=== PATIENT | female | born 1945 | race Caucasian/White ===

== ENCOUNTER → 2020-09-28 13:34 | Outpatient (CLI) | payer MEDICARE, SELFPAY ==
--- NOTE | 2020-09-28 | DI.CT.S_ITS ---
PROCEDURE: CT CHEST WO CON INDICATIONS: Chronic obstructive pulmonary disease, unspecified TECHNIQUE: Noncontrast 5 mm thick sections acquired from the pulmonary apices to the posterior costophrenic angles. 1 mm lung window, 5 mm thick coronal and sagittal and 7 mm axial MIP reformats were then acquired. For radiation dose reduction, the following was used: automated exposure control, adjustment of mA and/or kV according to patient size. COMPARISON: Outside Facility, , CT THORAX W/O CONTRAST, 05/06/2020, 12:09. FINDINGS: Image quality: Excellent. Lungs and pleura: No acute air space opacities. The prior pattern seen 05/06/20 has improved, with reduction of a generalized alveolitis pattern and also a reduction in the degree of interstitial prominence. No new abnormality has developed. No evidence of bronchiectasis or bronchitis is found. No pleural effusions or pneumothorax. Central and peripheral airways are patent and normal in caliber. Mediastinum: Heart size is normal. No pericardial effusion. No mediastinal adenopathy by size criteria. Thoracic aorta and central pulmonary arteries are normal in size. Esophagus is normal in caliber. No hiatal hernia. Bones and chest wall: No suspicious bony lesions. No vertebral body compression fractures. No axillary or supraclavicular adenopathy by size criteria. Thyroid gland is not well seen by this noncontrast technique. . Abdomen: Visualized upper abdominal solid organs and bowel loops appear normal in the absence of contrast. IMPRESSION: Significant interval improvement in the interstitial pneumonitis pattern and alveolitis pattern present 05/06/20. Mild patchy fibrotic change, in a pattern more likely to represent sequela of prior inflammatory events focally rather than a manifestation of UIP. Dictated by: Flakito Worrell M.D. on 09/29/2020 at 10:14 Approved by: Flakito Worrell M.D. on 09/29/2020 at 10:17
== END ==
PROVIDERS: Family Provider Family Medicine; PCP Family Medicine; Referring Provider Family Medicine; Visit Provider Family Medicine
DX: J44.9 Chronic obstructive pulmonary disease, unspecified (principal)
CPT/HCPCS: 71250

== ENCOUNTER 2022-06-16 11:42 | Day surgery (SDC) | payer OTHER, SELFPAY ==
[2022-06-16 12:09] VITALS: BP 137/89; PULSE 101; RESP 24; TEMP 36.6; O2SAT 95; BMI 52.3
[2022-06-16] MEDS: LACTATED RINGERS 1,000 ML 100 ML IV (12:22)
--- NOTE | 2022-06-16 13:10 | PM.PREOP ---
Pre-operative Note Interval Note History & Physical reviewed/Exam performed by Physician: Yes Changes to H&P: No H&P completed within 30 days and has changed as indicated here:: Presents today for screening colonoscopy I discussed the risks benefits and alternatives including but not limited to perforation of the colon and an incomplete exam she fully understands these risks and would like to proceed. Reiterated again today
[2022-06-16 14:17] VITALS: BP 111/88; PULSE 77; RESP 20; TEMP 36.9; O2SAT 99
[2022-06-16 14:22] VITALS: BP 162/91; PULSE 76; RESP 19; O2SAT 99
[2022-06-16 14:27] VITALS: BP 160/75; PULSE 77; RESP 22; O2SAT 100
[2022-06-16 14:32] VITALS: BP 160/80; PULSE 75; RESP 20; O2SAT 98
[2022-06-16 14:46] VITALS: BP 158/78; PULSE 77; RESP 20; TEMP 36.6; O2SAT 97
--- NOTE | 2022-06-16 18:25 | PM.OP.COLON ---
Operative Date/Time/Diagnoses Date of procedure: 06/16/22 Pre-op diagnosis: Colon cancer screening, history of polyps Procedure & Clinicians Study performed: Colonoscopy Same procedure as scheduled: Yes Surgeon: Darling Valdez Procedure Notes Procedure in detail: Patient was taken to the endoscopy suite and placed in a left lateral decubitus position. A time-out was performed. The help of anesthesiologist conscious sedation was induced and maintained throughout the case. A digital rectal exam was performed. The perianal skin was irritated and some external hemorrhoids were appreciated. Of note in addition there was a sacral decubitus ulcer stage II which was very reddened with some small amount of skin breakdown in the middle. The digital exam revealed no masses or strictures. Colonoscope was introduced into the anal canal and advanced through to the cecum. The prep was good it was a Tillson bowel prep score of 2. The withdrawal time was 14 minutes. There were several diverticula that were large especially in the sigmoid colon. Some photographs were obtained. The appendiceal orifice was photographed. The scope was retroflexed and the internal hemorrhoid piles appeared unremarkable. Patient tolerated the procedure well and went in good condition to the postoperative care unit. With no family history of colon cancer for the purpose of screening her follow-up can be in 10 years. She should have a colonoscopy sooner if she develops any concerning symptoms. Findings: divertiulosis and other findings (Stage II sacral decubitus ulcer present upon admission) Specimen(s): none sent Post-procedure Recommendations: Colonoscopy in 10 years Plan for aftercare: Regarding colon cancer screening: I do not adhere to a certain age generally at which screening is no longer recommended. I discussed this with Ms. Horton. A my feeling is that if you feel well enough that if you were diagnosed with colon cancer you would like to proceed with a surgery to remove it and possibly chemotherapy to treat it then you are well enough to tolerate a screening colonoscopy and ought to have one. This would be a 10 year follow-up and that discussion can be had at that time.
== END 2022-06-16 15:03 | disposition home or self-care (01) ==
PROVIDERS: Family Provider Family Medicine; PCP Family Medicine; Referring Provider Surgery; Visit Provider Surgery
PROC: 0DJD8ZZ Inspection of Lower Intestinal Tract, Via Natural or Artificial Opening Endoscopic (ICD-10-PCS; CPT 45378; principal; 2022-06-16 12:45)
DX: Z12.11 Encounter for screening for malignant neoplasm of colon (principal); Z86.010 Personal history of colon polyps; K57.30 Diverticulosis of large intestine without perforation or abscess without bleeding; L89.152 Pressure ulcer of sacral region, stage 2
CPT/HCPCS: 45378; 82962; J2250

== ENCOUNTER → 2022-09-14 09:40 | Outpatient (CLI) | payer OTHER, SELFPAY ==
--- NOTE | 2022-09-14 | DI.RAD.S_ITS ---
PROCEDURE: XR KNEE LT 3V INDICATIONS: Pain in left knee TECHNIQUE: 3 views of the knee were acquired. COMPARISON: None. FINDINGS: Bones: No fractures or dislocations. [id number] tricompartmental osteoarthritis is seen with joint space narrowing, subchondral sclerosis and marginal osteophyte formation. No suspicious bony lesions. Soft tissues: No joint effusion. Chondrocalcinosis in medial and lateral femoral tibial compartments are seen. Chondrocalcinosis is also seen in patellofemoral compartment. IMPRESSION: Hpum-os-[id number] tricompartmental osteoarthritis and chondrocalcinosis as described above. No fracture or dislocation. No significant joint effusion. Dictated by: Mike Gutierrez M.D. on 09/14/2022 at 12:36 Approved by: Mike Gutierrez M.D. on 09/14/2022 at 12:37
== END ==
PROVIDERS: Family Provider Family Medicine; PCP Family Medicine; Referring Provider Family Medicine; Visit Provider Family Medicine
DX: M17.12 Unilateral primary osteoarthritis, left knee (principal); M11.262 Other chondrocalcinosis, left knee; M25.562 Pain in left knee
CPT/HCPCS: 73562

== ENCOUNTER → 2023-03-16 13:28 | Outpatient (CLI) | payer OTHER, SELFPAY ==
--- NOTE | 2023-03-16 | DI.NM.S_ITS ---
PROCEDURE: NM PARATHYROID SPECT RADIOPHARMACEUTICAL: 26.5 mCi Tc-99m sestamibi IV. INDICATIONS: ELEVATED PARATHYROID HORMONE TECHNIQUE: After intravenous administration of Tc-99m sestamibi, anterior planar images of the neck and mediastinum were obtained at approximately 10 minutes and 2-3 hours. SPECT images were acquired after the 10 minute planar images. COMPARISON: Outside Facility, RG, US THYROID, 07/01/2018, 16:14. [facility], CT, CT CHEST WO CON, 09/28/2020, 13:42. FINDINGS: On the early images, the thyroid gland is bilobed and has normal size and morphology. There is no focal increased activity in the thyroid bed. The delayed images show trace persistent activity in the expected position of the thyroid. The SPECT images demonstrate no abnormal activity in the neck. IMPRESSION: Trace persistent activity projecting over the thyroid on delayed images, possibly representing hyperplasia or persistent thyroid activity. No asymmetric nodular uptake to suggest a focal adenoma. Consider more recent thyroid ultrasound for additional evaluation if indicated. Approved by: Jonathan Preston M.D. on 03/16/2023 at 20:21
== END ==
LOC: NUCM 13:29
PROVIDERS: Family Provider Family Medicine; PCP Family Medicine; Referring Provider Family Medicine; Visit Provider Family Medicine
DX: R79.89 Other specified abnormal findings of blood chemistry (principal)
CPT/HCPCS: 78071; A9500

== ENCOUNTER → 2023-03-26 09:00 | Outpatient (CLI) | payer OTHER, SELFPAY ==
--- NOTE | 2023-03-26 | DI.US.S_ITS ---
PROCEDURE: US THYROID INDICATIONS: HYPERCALCEMIA TECHNIQUE: Real-time scanning was performed of the thyroid gland, with image documentation. COMPARISON: None available at the time of dictation. FINDINGS: Right: Thyroid lobe measures 4.7 x 1.4 x 1.9 cm, and is homogeneous in echotexture. Left: Thyroid lobe measures 6.1 x 1.7 x 2.2 cm, and is homogenous in echotexture. Isthmus: 0.7 cm thick. Nodule number: 1 Location: Left lower lobe Size: 2.6 x 2.2 by 2.2 cm. Composition: Solid Echogenicity: Hypoechoic Shape: wider than tall. Margins: smooth Echogenic foci: Non Total points: 4 ACR TI-RADS category: 4, previously biopsied, benign results It 2 x 2 mm calcifications also seen in the superior left thyroid, too small for follow-up. IMPRESSION: 2.6 cm left inferior thyroid nodule appears unchanged since 5 years ago and prior FNA was benign as per patient in 2019; therefore no follow-up of this lesion is required. ACR TI-RADS definitions and recommendations: TI-RADS 1 (benign): 0 points. FNA not needed. TI-RADS 2 (not suspicious): 2 points. FNA not needed. TI-RADS 3 (mildly suspicious): 3 points. * FNA if 2.5 cm or larger, follow up if 1.5 cm or larger (at 1, 3, and 5 years). TI-RADS 4 (moderately suspicious): 4-6 points. * FNA if 1.5 cm or larger, follow up if 1 cm or larger (at 1, 2, 3, and 5 years). TI-RADS 5 (highly suspicious): 7 points or more. * FNA if 1 cm or larger, follow up if 0.5 cm or larger (every year for 5 years). Dictated by: Arun Linder M.D. on 03/26/2023 at 13:41 Approved by: Arun Linder M.D. on 03/27/2023 at 10:04
== END ==
LOC: US 09:02
PROVIDERS: Family Provider Family Medicine; PCP Family Medicine; Referring Provider Family Medicine; Visit Provider Family Medicine
DX: E04.1 Nontoxic single thyroid nodule (principal); E83.52 Hypercalcemia; R79.89 Other specified abnormal findings of blood chemistry
CPT/HCPCS: 76536

== ENCOUNTER → 2023-04-10 10:46 | Outpatient (CLI) | payer OTHER, SELFPAY ==
--- NOTE | 2023-04-10 10:48 | DI.RAD.S_ITS ---
Bone Density Report Name: AMRIK BEAL Age: 77 Sex: Female Ethnicity: White Date of : 1945 Indication: postmenopausal; screening for osteoporosis; Referring Provider: JAY JAY GERONIMO Study: Bone densitometry was performed. Exam Date: April 10, 2023 Accession number: [id number] Bone Density: Region BMD T-score Z-score Classification AP Spine(L1-L4) 1.082 0.3 2.9 Normal Femoral Neck (Left) 0.748 -0.9 1.3 Normal Total Hip (Left) 0.909 -0.3 1.6 Normal Femoral Neck (Right) 0.666 -1.6 0.5 Osteopenia Total Hip (Right) 0.946 0.0 1.9 Normal Total Hip Mean 0.927 -0.2 1.8 Normal World Health Organization criteria for BMD impression classify patients as: Normal (T-score at or above -1.0), Osteopenia (T-score between -1.0 and -2.5), or Osteoporosis (T-score at or below -2.5). 10-year Fracture Risk(1): Major Osteoporotic Fracture 10% Hip Fracture 2.1% Reported Risk Factors: [place] (), Neck BMD=0.666, BMI=49.2 (1) FRAX(R) Version 3.08. Fracture probability calculated for an untreated patient. Fracture probability may be lower if the patient has received treatment. Previous Exams: -- Region Exam Age BMD T-score BMD Change BMD Change Date g/cm2 vs Baseline vs Previous -- AP Spine (L1-L4) 04/10/2023 77 1.082 0.3 0.085 (8.6%)# 0.085 (8.6%)# 11/15/2010 65 0.996 -0.5 Total Hip(Left) 04/10/2023 77 0.909 -0.3 -0.186 (-17.0%)# -0.186 (-17.0%)# 11/15/2010 65 1.095 1.3 Total Hip(Right) 04/10/2023 77 0.946 0.0 -0.093 (-8.9%)# -0.093 (-8.9%)# 11/15/2010 65 1.038 0.8 -- *Denotes significance at 95% confidence level, LSC for AP Spine = 0.022 g/cm2, LSC for Total Hip = 0.027 g/cm2 # Denotes dissimilar scan types or analysis methods Impression: The patient has low bone mass, based on the Right Femoral Neck T-score. The patient has an estimated ten-year risk of hip fracture of 2.1% and an estimated ten-year risk of major fracture of 10%, based on the WHO FRAX algorithm. No significant bone loss was observed. Discussion: BONE DENSITY IS LOW AT ONE OR MORE SKELETAL SITES. This patient's lowest T-score is low at one or more skeletal sites. It meets the World Health Organization's (WHO) criteria for low bone mass (T-score between -1.0 and -2.5). The patient's 10-year risk of fracture as calculated by FRAX is less than the threshold where pharmacological therapy is recommended by the National Osteoporosis Foundation (NOF). However, all treatment decisions require clinical judgment and consideration of individual patient factors, including patient preferences, comorbidities, previous drug use, risk factors not captured in the FRAX model (e.g., frailty, falls, vitamin D deficiency, increased bone turnover, interval significant decline in bone density) and possible under or overestimation of fracture risk by FRAX. The patient should follow a healthful lifestyle (good nutrition with adequate calcium and vitamin D, and appropriate weight-bearing exercise). Follow-Up: Consider repeating this study in 2 to 3 years to reassess this patient's status, or sooner if there is some new clinical indication. Reported by: KEVIN BRO MD on 04/10/2023 11:44:00 AM.
--- NOTE | 2023-04-10 11:06 | DI.CT.S_ITS ---
PROCEDURE: CT CHEST WO CON INDICATIONS: Other specified disorders of bone density and stru TECHNIQUE: Noncontrast 5 mm thick sections acquired from the pulmonary apices to the posterior costophrenic angles. 1 mm lung window, 5 mm thick coronal and sagittal and 7 mm axial MIP reformats were then acquired. For radiation dose reduction, the following was used: automated exposure control, adjustment of mA and/or kV according to patient size. COMPARISON: Outside Facility, RG, CT THORAX W/O CONTRAST, 12/24/2018, 9:42. [facility], CT, CT CHEST WO CON, 09/28/2020, 13:42. FINDINGS: Image quality: Diagnostic. Lower Neck: No enlarged lymph nodes. Thyroid: There is an inferior left low-density thyroid nodule. The right thyroid lobe is unremarkable. Axillae: No enlarged lymph nodes. Chest Wall: Unremarkable. Bones: Unremarkable. Lungs and Pleura: No pneumothorax or pleural effusions. There is severe centrilobular emphysema and paraseptal emphysema with an apical predominance. Peripheral interlobular septal thickening is present throughout the lungs suggesting fibrotic change. There is early honeycombing fibrosis at the right lung base. A 7 mm pleural based right middle lobe pulmonary nodule is unchanged from the study dated December 24, 2018 (series 3/image 143). Heart: Heart size is normal. No pericardial effusion. Thoracic Vessels: The aorta and pulmonary arteries demonstrate normal size. Scattered atheromatous calcifications are present within the aortic arch. Mediastinum and Leyda: No enlarged lymph nodes. Esophagus: No wall thickening. No hiatal hernia. Upper Abdomen: Visualized upper abdomen solid organs and bowel loops appear normal. IMPRESSION: 1. No suspicious pulmonary nodules or acute airspace opacities which warrant follow-up. 2. Emphysematous change and pulmonary fibrosis. Dictated by: Daria Camarillo M.D. on 04/10/2023 at 15:50 Approved by: Daria Camarillo M.D. on 04/10/2023 at 16:02
== END ==
PROVIDERS: Family Provider Family Medicine; PCP Family Medicine; Referring Provider Family Medicine; Visit Provider Family Medicine
DX: J43.2 Centrilobular emphysema (principal); R91.1 Solitary pulmonary nodule; J84.10 Pulmonary fibrosis, unspecified; M85.89 Other specified disorders of bone density and structure, multiple sites
CPT/HCPCS: 71250; 77080

== ENCOUNTER 2023-06-22 22:03 | Emergency (ER) | payer OTHER, SELFPAY ==
[2023-06-22 22:06] VITALS: BP 132/64; PULSE 95; RESP 24; TEMP 36.5; O2SAT 96; BMI 52.3
--- NOTE | 2023-06-22 23:17 | PC.NURSE ---
Patient has mottled skin to middle and upper back. She reports she uses a heating pad all throughout the day and often sleeps on it. 1 attempt at IV failed by Jess Jimenez RN, 2 attempts at IV by this EDRN in Left Upper arm using ultrasound failed at this time. Lab called to come draw blood. Patient unable to provide urine specimen in bathroom. Upon exiting bathroom she reports that she wants to go home. This EDRn encouraged her to stay and explained to her the risks of leaving prior to being seen by a provider. Patient sitll wants to go, she signed [facility] paperwork at this time.
--- NOTE | 2023-06-22 23:22 | PC.NURSE ---
Patient reports low back pain with degenerative disc disease and kidney disease. She reports pain is achy in nature.
--- NOTE | 2023-06-23 06:19 | ED.BACK ---
HPI - Back Pain/Injury General Chief Complaint: Back Pain/Injury Stated Complaint: kidney pain/modeling on back Source: patient and family History of Present Illness HPI Narrative: (patient left without being seen, was in the waiting room apparently left from the waiting room) Related Data Home Medications Medication Instructions Recorded Confirmed MULTIVITAMIN (Multivitamin 0 PO * UK DOSE/FREQUENCY ##0 02/06/07 05/19/22 -) aspirin 81 mg tablet,delayed 81 mg PO QDAY ##0 06/11/16 06/16/22 release acetaminophen 500 mg tablet 1,000 mg PO ONCE 05/19/22 05/19/22 atorvastatin 20 mg tablet 20 mg PO DAILY 05/19/22 06/16/22 gabapentin 600 mg tablet 600 mg PO DAILY 05/19/22 06/16/22 lisinopril 20 1 tab PO DAILY 05/19/22 06/16/22 mg-hydrochlorothiazide 25 mg tablet loratadine 10 mg tablet 10 mg PO DAILY 05/19/22 06/16/22 nystatin 100,000 unit/gram topical 1 applic topical QID 05/19/22 05/19/22 cream sertraline 50 mg tablet 50 mg PO DAILY 05/19/22 06/16/22 tramadol 50 mg tablet 50 mg PO Q6H PRN Pain (Scale Score 05/19/22 06/16/22 1-3) Allergies Allergy/AdvReac Type Severity Reaction Status Date / Time Sulfa (Sulfonamide Allergy Verified 05/19/22 10:49 Antibiotics) Patient History Medical History CKD (chronic kidney disease), stage III COPD (chronic obstructive pulmonary disease) Degenerative joint disease Depression Hyperlipemia Hypertension Lumbar radiculopathy RLS (restless legs syndrome) Sleep apnea Type 2 diabetes mellitus Family History Mother Cancer Hypertension Diabetes mellitus Father Cancer Diabetes mellitus Hypertension Social History household members: family Smoking Status: Never smoker alcohol intake: current Smoking Status: Never smoker alcohol intake frequency: holidays/special occasions only Substance Use Type: does not use Exam Initial Vital Signs Initial Vital Signs: Vital Signs Temperature 97.7 F 06/22/23 22:06 Pulse Rate 95 H 06/22/23 22:06 Respiratory Rate 24 06/22/23 22:06 Blood Pressure 132/64 06/22/23 22:06 Pulse Oximetry 96 06/22/23 22:06 Oxygen Delivery Method Room Air 06/22/23 22:06 Course Orders Ordered: ED Orders 06/22/23 22:51 EKG-12 Lead Stat Discontinued Medications Ondansetron HCl (Ondansetron 4 Mg/2 Ml Inj) 4 mg IV NOW PRN PRN Reason: Nausea And Vomiting Discharge Plan Departure Patient Disposition: Left Without Being Seen Clinical Impression: Patient left without being seen Prescriptions: No Action MULTIVITAMIN (Multivitamin -) 0 PO * DOSE/FREQUENCY Qty: 0 aspirin 81 MG tablet,delayed release (DR/EC) 81 mg PO QDAY Qty: 0 lisinopril-hydrochlorothiazide 20-25 mg tablet 1 tab PO DAILY sertraline 50 mg tablet 50 mg PO DAILY nystatin 100,000 unit/gram cream 1 applic topical QID gabapentin 600 mg tablet 600 mg PO DAILY atorvastatin 20 mg tablet 20 mg PO DAILY tramadol 50 mg tablet 50 mg PO Q6H PRN (Reason: Pain (Scale Score 1-3)) acetaminophen 500 mg tablet 1,000 mg PO ONCE loratadine 10 mg tablet 10 mg PO DAILY
== END 2023-06-22 23:26 | disposition left against medical advice (07) ==
PROVIDERS: Emergency Provider Emergency Medicine; Family Provider Family Medicine; PCP Family Medicine
CPT/HCPCS: 99281